=== PATIENT | female | born 2000 | race Caucasian/White ===

== ENCOUNTER 2022-07-06 11:50 | Emergency (ER) | payer OTHER ==
[~2022-07-06] VITALS: Ht 165.1 cm; Wt 86.2 kg
== END 2022-07-06 13:50 | disposition home or self-care (01) ==
LOC: ER 11:58
DX: S00.83XA Contusion of other part of head, initial encounter (principal); V47.5XXA Car driver injured in collision with fixed or stationary object in traffic accident, initial encounter; Y92.488 Other paved roadways as the place of occurrence of the external cause
CPT/HCPCS: 70450; 72125; 99283